=== PATIENT | female | born 1980 | race Caucasian/White ===

== ENCOUNTER 2021-02-23 09:09 | Day surgery (SDC) | payer BC ==
--- NOTE | 2021-02-23 09:03 | HP ---
DATE OF SURGERY: 02/23/2021 HISTORY OF PRESENT ILLNESS: The patient is a 40 year-old who for a few weeks started a new medicine, Cardura, and had some nausea and some palpitations, some nausea and vomiting. She has a bowel movement once every four days. Change in bowel habits. Last endoscopy was a while back. No abdominal surgeries. The patient also reports some question of melena and dark black stools along with some nausea and vomiting. PAST MEDICAL HISTORY: Diabetes, hypertension. PAST SURGICAL HISTORY: No prior abdominal surgeries. MEDICATIONS: Xanax, Vraylar. ALLERGIES: PENICILLIN. AMOXICILLIN. FAMILY HISTORY: Negative in regards to this problem. SOCIAL HISTORY: Half pack per day smoker. No alcohol use. REVIEW OF SYSTEMS: Fourteen systems reviewed. No chest pain or palpitations. Other systems negative or noncontributory as above and per preadmission questionnaire. PHYSICAL EXAMINATION: GENERAL: No acute distress. HEENT: Sclerae nonicteric. NECK: No JVD. CHEST: Equal excursion, nonlabored breathing. CVS: Regular rate and rhythm. ABDOMEN: Soft. No peritoneal signs. EXTREMITIES: No significant edema. NEURO: Alert, oriented, moving extremities symmetrically. RECTAL: Deferred timed to endoscopy exam. PSYCH: Appropriate mood and affect. IMPRESSION: Change in bowel habits, question of melena, dark black stools, nausea and vomiting. I feel she would benefit from upper and lower endoscopy for further evaluation. Risks and benefits explained in detail including but not limited to bleeding or infection, risk of bowel injury or perforation possibly requiring open procedure, risk of missed or nondiagnosis or incomplete exam possibly requiring barium swallow, barium enema, other studies or procedures. General risk of anesthesia or sedation, but not limited to, consent obtained, will proceed with EGD possible biopsy as an outpatient.
[~2021-02-23 09:09] MED LIST: Lactated Ringers 1,000 ML IV ONE; Lactated Ringers 1,000 ML IV SCH
[2021-02-23] MEDS ORDERED: DIPRIVAN 200 MG/20 ML IV ONE (10:53)
[2021-02-23] MEDS ORDERED: Xylocaine-Mpf 2% 5 Ml Vial ONE (10:53)
[2021-02-23] MEDS ORDERED: Lactated Ringers 1,000 ML IV ONE (11:10)
[2021-02-23 11:56] VITALS: O2SAT 98
[2021-02-23 12:13] VITALS: BP 124/60; PULSE 70
--- NOTE | 2021-02-24 07:36 | OP ---
SURGERY DATE/TIME: 02/23/2021 1055 PREOPERATIVE DIAGNOSES: 1) Change in bowel habits. 2) Nausea and vomiting. 3) Increasing dark stools. 4) Need for upper and lower endoscopy for further evaluation to rule out gastritis, peptic ulcer disease, esophagitis, celiac disease, colitis or other etiology. POSTOPERATIVE DIAGNOSES: 1) Mild gastritis. 2) Limited colon prep limiting the exam otherwise fairly normal lower GI tract on endoscopic view. No signs of any large polyps, masses or obstructing lesions. PROCEDURES: 1) EGD with cold biopsy of small bowel to evaluate for celiac sprue. 2) Cold biopsy of antrum to evaluate for Helicobacter pylori. 3) Colonoscopy to terminal ileum. 4) Retrograde ileoscopy. 5) Random ileal biopsies to evaluate for microscopic ileitis. 6) Random colon biopsies to evaluate for microscopic colitis. SURGEON: Dr. Angelo Walls. ANESTHESIA: MAC. ESTIMATED BLOOD LOSS: Minimal. INDICATIONS: As noted above. Risks and benefits explained in detail and not limited to and consent obtained. DESCRIPTION OF PROCEDURE AND FINDINGS: The patient is taken to the endoscopy room. MAC anesthesia introduced. After official time out and no disagreement with planned procedure, a bite block positioned. Video gastroscope easily passed down the esophagus through the patent pylorus to the junction of the second and third portion of the duodenum. Duodenum fairly unremarkable. Given her symptom complaints of change in bowel habits, nausea and vomiting, cold biopsy taken to evaluate for celiac sprue. Good hemostasis noted. Back in the stomach she did have some mild gastritis. No evidence of any ulcers or masses. No signs of any hiatal hernia on retroflex. Cold biopsy taken of the antrum to evaluate for Helicobacter pylori. Good hemostasis noted. The scope pulled back gastroesophageal junction 40 cm. Z-line was crisp. Esophagus grossly unremarkable on withdrawal. The scope is withdrawn. Attention is then turned to colonoscopy. Digital rectal exam did not reveal any rectal masses. Video colonoscope inserted and passed up the tortuous sigmoid, descending, transverse and ascending colon. The prep was very limited with liquidy and some solid and semisolid stool limiting the exam this was suction irrigated as clear as possible but did limit exam for very small lesions. The scope was able to reach the cecum. Appendiceal orifice and valve were photo documented. The scope was passed up the terminal ileum. Retrograde ileoscopy performed which was grossly unremarkable. Given her symptom complaints, cold biopsy was taken to evaluate for microscopic ileitis. The scope was then carefully withdrawn. Random cold biopsies taken in the colon to evaluate for microscopic colitis. Otherwise no signs of any large polyps, masses, or obstructing lesions. Again, the patient did have limited prep limiting evaluation for very tiny lesions. The scope is withdrawn. There were no immediate complications. Findings discussed with a family member over the phone. I will see her back in the office in the next week or two. Will see if she had a gallbladder work up as she might need that next.
== END 2021-02-23 12:15 | disposition home or self-care (01) ==
LOC: SDC 09:09
PROVIDERS: ATTEND Surgery
DX: K29.70 Gastritis, unspecified, without bleeding (principal); R11.2 Nausea with vomiting, unspecified; R19.4 Change in bowel habit; E11.9 Type 2 diabetes mellitus without complications; I10 Essential (primary) hypertension; Z79.899 Other long term (current) drug therapy
CPT/HCPCS: 84703; 88305; 88342; J2704